=== PATIENT | male | born 1990 | race Native Hawaiian/Other Pacific Islander ===

== ENCOUNTER 2022-11-23 11:38 | Emergency (ER) | payer OTHER ==
[~2022-11-23] VITALS: Ht 172 cm; Wt 61.0 kg
[2022-11-23] MEDS ORDERED: TETANUS,DIPTH,PERTUSS P/F (BOOSTRIX) 0.5 ML VIAL IM ONE (12:00)
--- NOTE | 2022-11-23 12:00 | ED Upper Extremity ---
General Chief Complaint: Upper Extremity Stated Complaint: RT HAND FINGER INJ AT WORK, WC Nursing Triage Note: PT TO RM 3 WITH CC OF CRUSHINJURY TO RT SECOND DIGIT, PT DROPPED HEAVY STEEL ON IT ABOUT 20 MIN WIRE TINNER, NO DRESSING IN, TOURNIQUET IN PLACE ON ARRIVAL TAKEN OFF AT TRIAGE, NO DRESSING. PT STATED BLOOD WAS RUNNING OUIT AND NOT SQUIRTING. PT NEEDS A TETANUS SHOT, DENIES MED HX. DIAGNOSTICS TECH NEEDED, CO WORKER SPEAKS [facility] Source: patient Exam Limitations: no limitations History of Present Illness Date Seen by Provider: Nov 23, 2022 Time Seen by Provider: 11:50 Initial Comments 32-year-old Upper Sorbian-speaking male presents to the ED after work injury. States that a heavy piece of metal fell on his right hand approximately 20 minutes prior to arrival. He is complaining of pain in the hand as well as the index finger. There is a laceration to the distal end of the index finger. Denies any past medical history, denies any past surgeries, does not take any medications. Allergies and Home Medications Allergies Coded Allergies: No Known Drug Allergies (Unverified , 11/23/22) Patient Home Medication List Home Medication List Reviewed: Yes Review of Systems Constitutional: no symptoms reported Musculoskeletal: other (Right hand pain) Skin: other (Laceration to distal end of index finger of right hand.) Past Mfilqje-Jyilvk-Cfzpai Hx Patient Social History Tobacco Use?: No Substance use?: No Alcohol Use?: Yes Alcohol type: Beer Immunizations Up To Date First/Initial COVID19 Vaccinat: NO Past Medical History Surgery/Hospitalization HX: DENIES MED HX Physical Exam Vital Signs Vital Signs - First Documented 11/23/22 11:45 Temp 36.2 Pulse 77 Resp 20 B/P (MAP) 128/113 (118) Pulse Ox 100 O2 Delivery Room Air Capillary Refill : Height, Weight, BMI Height: '" Weight: lbs. oz. kg; 20.00 BMI Method: General Appearance: WD/WN, no apparent distress Neck: supple, normal inspection Cardiovascular: regular rate, rhythm, no edema, no gallop, no JVD, no murmur Respiratory: lungs clear, normal breath sounds, no respiratory distress, no accessory muscle use Wrist: Yes no evidence of injury, Yes normal ROM Hand: Right, abrasions (Posterior aspect of right hand), laceration (Distal end of index finger on right hand), limited ROM (fingers) Neurologic/Psychiatric: alert, normal mood/affect Skin: normal color, warm/dry Procedures/Interventions Wound Location: Upper Extremities Other Wound Location Distal end of second digit Wound's Depth, Shape: irregular Wound Explored: clean Irrigated w/ Saline (ccs): 500 Anesthesia: 1% Lidocaine Volume Anesthetic (ccs): 5 Suture: Ethlion Suture Size: 4-0 Number of Sutures: 16 Progress/Results/Core Measures Results/Orders My Orders Orders - TRINA GARCIA APRN Hand, Right, 3 Views (11/23/22 11:52) Dipht,Pertuss(Acell),Tet Adult (Boostrix (11/23/22 12:00) Hydrocodone/Apap 5/325 Tablet (Lortab 5 (11/23/22 12:15) Lidocaine 1% Inj 20 Ml (Xylocaine 1% Inj (11/23/22 12:15) Lidocaine 1% Inj 10 Ml (Xylocaine 1% Inj (11/23/22 12:15) Medications Given in ED Vital Signs/I&O Blood Pressure Mean: 118 Progress Progress Note #1: Time: 12:00 Progress Note Patient seen and evaluated, resting comfortably, no acute distress. Based on exam and symptoms, concern for fracture of hand or right index finger. X-ray of hand ordered. Progress Note #2: Time: 13:34 Progress Note Laceration repair completed. X-ray negative for fracture. Will discharge with follow-up with wound care due to being unable to completely close laceration. Discharge charge and return precautions provided. Wound care called to speak with his physician after patient left. She states that Dr. Blount will be out of the office next week, so they will be unable to remove the sutures in time for him to be removed. Wound care will call patient back to have him come to the ER to have the sutures removed in 10 days. Discussed still wanting to have him be seen by wound care due to being unable to close the wound. Wound care will try to schedule an appointment for him for when Dr. Blount is back in office. Diagnostic Imaging Diagonstic Imaging: Xray Plain Films/CT/US/NM/MRI: hand Comments [facility], [place] NAME: ANTHONY GATES [facility] REC#: [id number] PT STATUS: DEP ER : 1990 PHYSICIAN: TRINA GARCIA APRN ADMIT DATE: 11/23/22/ER Signed Date of Exam:11/23/22 HAND, RIGHT, 3 VIEWS INDICATION: Right hand pain post crush injury. TECHNIQUE: AP, oblique, and lateral views of the right hand were obtained. FINDINGS: No fracture or acute bony abnormality is seen. There is no radiopaque foreign body. There is soft tissue swelling over the 2nd digit distally with abnormal soft tissue gas in the volar soft tissues. IMPRESSION: No fracture or radiopaque foreign body. Soft tissue gas and soft tissue swelling are noted over the 2nd digit. Dictated by: Dictated on workstation # [id number] Dict: 11/23/22 1241 Trans: 11/23/22 2159 [id number] Interpreted by: ZAINA TOMLINSON MD Electronically signed by: ZAINA TOMLINSON MD 11/23/222158 Departure Impression Primary Impression: Laceration Disposition: 01 HOME, SELF-CARE Condition: Stable Departure-Patient Inst. Decision time for Depature: 13:35 Referrals: JOHANA BLOUNT MD Patient Instructions: Laceration Repair With Stitches (DC) Add. Discharge Instructions: Call wound care today to schedule follow-up. Wear the dressing and splint until you see wound care. They will remove your sutures at some point. Return for increased pain, swelling, redness, abnormal drainage from wound, fever, or any other new, concerning, or worsening symptoms. All discharge instructions reviewed with patient and/or family. Voiced understanding. TRINA GARCIA APRN Nov 23, 2022 12:00
[2022-11-23] MEDS ORDERED: LIDOCAINE 1% INJ 20 ML VIAL INJ ONE (12:15)
[2022-11-23] MEDS ORDERED: HYDROcodone/APAP 5 MG/325 MG (LORTAB) TAB PO ONE (12:15)
[2022-11-23] MEDS ORDERED: LIDOCAINE 1% INJ 10 ML VIAL ONE (12:15)
--- NOTE | 2022-11-23 12:46 | Diagnostic Imaging Report ---
INDICATION: Right hand pain post crush injury. TECHNIQUE: AP, oblique, and lateral views of the right hand were obtained. FINDINGS: No fracture or acute bony abnormality is seen. There is no radiopaque foreign body. There is soft tissue swelling over the 2nd digit distally with abnormal soft tissue gas in the volar soft tissues. IMPRESSION: No fracture or radiopaque foreign body. Soft tissue gas and soft tissue swelling are noted over the 2nd digit. Dictated by: Dictated on workstation # [id number]
[2022-11-23 13:52] VITALS: BP 130/82
== END 2022-11-23 13:52 | disposition home or self-care (01) ==
LOC: ER 11:41
DX: S61.210A Laceration without foreign body of right index finger without damage to nail, initial encounter (principal); Z28.310 Unvaccinated for COVID-19; W20.8XXA Other cause of strike by thrown, projected or falling object, initial encounter; Y92.59 Other trade areas as the place of occurrence of the external cause; Y99.0 Civilian activity done for income or pay
CPT/HCPCS: 12013; 73130; 90715

== ENCOUNTER 2022-11-25 07:39 | Emergency (ER) | payer OTHER ==
[~2022-11-25] VITALS: Ht 172.7 cm; Wt 61.2 kg
[2022-11-25] MEDS ORDERED: CEPH500T PO (08:11)
--- NOTE | 2022-11-25 08:15 | ED Suture Removal/Wound Check ---
Suture/Wound Re-check Suture Removal/Wound Recheck : Progress Here with needing dressing change. Has tube gauze in place. States pain is present a little. He is taking hjxq-ivl-lsumtka ibuprofen. He is not currently on antibiotics. No bleeding through exterior gauze noted. General Appearance: WD/WN, no apparent distress Neuro/Tendon: normal motor functions Skin Exam: normal color, warm/dry Comments Gauze dressing soaked as there was bleeding and lower layers and gauze is adhered. After soaking, I was able to expose wound. He does have swelling but no significant red streaks up the finger. Wound appears to be healing. We did clean wound with sterile saline and then I did apply antibiotic ointment and Xeroform gauze to wound. This was covered with dressing and gauze wrap. Tolerated procedure well with no complications. He will need recheck in 2 days. We will initiate outpatient antibiotics due to severity of wound and limited access to wound care. Physical Exam Vital Signs Vital Signs - First Documented 11/25/22 07:48 Temp 36.0 Pulse 68 B/P (MAP) 128/81 (97) Pulse Ox 98 O2 Delivery Room Air Capillary Refill : General Appearance: WD/WN, no apparent distress Extremities: swelling (Distal right index finger without red streaks or foul- smelling drainage) Skin: other (See above) Departure Impression Primary Impression: Encounter for wound re-check Disposition: 01 HOME, SELF-CARE Condition: Improved Departure-Patient Inst. Referrals: NO,LOCAL PHYSICIAN (PCP/Family) Primary Care Physician Patient Instructions: Wound Care (DC) Add. Discharge Instructions: All discharge instructions reviewed with patient and/or family. Voiced understanding. Return here on Wednesday for wound recheck. You may change dressing if it becomes soiled but otherwise leave it in place until Wednesday morning. Continue to follow-up with wound care. Sutures will come out in 10 days either at wound care or here. Return for red streaks up the hand, foul-smelling drainage, fever, increasing pain or other concerns as needed. You may take Tylenol/acetaminophen 1000 mg every 6 hours as needed for pain. You may take ibuprofen 600 mg every 8 hours as needed for pain. Regrese aqu el viernes por la maana para volver a revisar la herida. Puede cambiar el vendaje si se ensucia, gina de lo contrario djelo en miller lugar hasta el viernes por la maana. Contine con el seguimiento con el cuidado de la herida. Las suturas saldrn en 10 olguin ya sea en el cuidado de la herida o aqu. Regrese por vetas ratliff en la mano, drenaje maloliente, fiebre, aumento del dolor u otras preocupaciones segn sea necesario. Puede rafaela Tylenol/acetaminophen 1000 mg cada 6 horas segn sea necesario para el dolor. Puede rafaela ibuprofeno 600 mg cada 8 horas segn sea necesario para el dolor. Scripts Cephalexin (Cephalexin) 500 Mg Tablet 500 MG PO QID, #20 TAB 0 Refills Prov: MILLY WAGONER MD 11/25/22 MILLY WAGONER MD Nov 25, 2022 08:14
[2022-11-25 09:05] VITALS: BP 119/78
== END 2022-11-25 09:05 | disposition home or self-care (01) ==
LOC: EDUNIT# 07:39 → ER 07:41
DX: Z48.00 Encounter for change or removal of nonsurgical wound dressing (principal); Z28.310 Unvaccinated for COVID-19
CPT/HCPCS: 99281

== ENCOUNTER 2022-11-27 07:02 | Emergency (ER) | payer OTHER ==
[~2022-11-27] VITALS: Ht 172 cm; Wt 61.2 kg
[~2022-11-27 07:02] MED LIST: CEPH500T PO
--- NOTE | 2022-11-27 09:09 | ED Suture Removal/Wound Check ---
Suture/Wound Re-check Suture Removal/Wound Recheck : Progress This 32-year-old gentleman presents for a wound check after sustaining injury to the right index finger 2 days ago and receiving sutures in this emergency room. The wound has remained dressed and splinted since then. He has been taking the prophylactic antibiotics. Pain is fairly well controlled. Dressings were taken down during this encounter. There was some adhesion to the wound. Dressing was soaked with saline and carefully peeled away. A thin layer of antibiotic ointment was applied to help prevent further adhesion. Then Xero form gauze was applied followed by a sterile gauze dressing and the splint. General Appearance: WD/WN, no apparent distress Physical Exam Vital Signs Vital Signs - First Documented 11/27/22 11/27/22 07:24 09:19 Temp 36.7 Pulse 67 Resp 20 B/P (MAP) 134/79 Pulse Ox 99 O2 Delivery Room Air Capillary Refill : Less Than 3 Seconds General Appearance: WD/WN, no apparent distress Extremities: other (Laceration in the right distal index finger is approximated with sutures which are still intact. There is slight oozing of blood and serous fluid. No evidence of infection. There is a portion of the palmar aspect of the wound with dusky skin but there is still some blanching and sensation is intact. Sensation and capillary refill is intact in the distal finger.) Departure Impression Primary Impression: Laceration of finger Qualified Codes: S61.211D - Laceration without foreign body of left index finger without damage to nail, subsequent encounter Additional Impression: Encounter for wound care Disposition: HOME, SELF-CARE Condition: Stable Departure-Patient Inst. Decision time for Depature: 09:08 Referrals: NO,LOCAL PHYSICIAN (PCP/Family) Primary Care Physician Patient Instructions: Laceration Repair With Stitches (DC) Add. Discharge Instructions: Keep the wound clean and dry. Elevate to the level of the heart is much as possible. Return on November 29 for a another wound check and dressing change. Continue taking antibiotics as previously prescribed. Return sooner if the dressing becomes soiled or if you have any other problems or concerns. All discharge instructions reviewed with patient and/or family. Voiced understanding. ALCIDES BURCH MD Nov 27, 2022 09:09
[2022-11-27 09:19] VITALS: BP 134/79
[2022-12-10] MEDS ORDERED: ACHD5005 PO (11:36)
== END 2022-11-27 09:19 | disposition home or self-care (01) ==
LOC: EDUNIT# 07:02 → ER 07:03
DX: Z09 Encounter for follow-up examination after completed treatment for conditions other than malignant neoplasm (principal)

== ENCOUNTER 2022-11-29 08:24 | Emergency (ER) | payer OTHER ==
[~2022-11-29] VITALS: Ht 172 cm; Wt 61.2 kg
[2022-11-29 08:30] VITALS: BP 117/74
--- NOTE | 2022-11-29 08:53 | ED Integumentary General ---
General Stated Complaint: RIGHT FINGER WOUND CHECK Source: patient, diplomatic interpreter/translator Exam Limitations: language barrier History of Present Illness Date Seen by Provider: Nov 29, 2022 Time Seen by Provider: 08:35 Initial Comments 32-year-old male who presents to the emergency room with chief complaint of needing a "wound check". He sustained blunt force injury to the right fingertip of the index finger on . He had multiple sutures placed at that time and has had 2 subsequent visits for wound evaluation. Wound has been dressed with Xeroform gauze and an overlying dry gauze dressing with a metal finger splint. Patient was placed on prophylactic antibiotics and is currently taking them. Complains of a little bit of increased pain last night. Is only taking Tylenol and ibuprofen without much relief. No fevers or chills. No red streaks up the hand or into the forearm. States that the fingertip feels numb however he can feel me touching the tip. Does have limited flexion and extension. Timing/Duration: week Severity: moderate Location: hands (right index finger) Associated Symptoms: other (increased pain) Allergies and Home Medications Allergies Coded Allergies: No Known Drug Allergies (Unverified , 11/23/22) Patient Home Medication List Home Medication List Reviewed: Yes Cephalexin (Cephalexin) 500 Mg Tablet, 500 MG PO QID Prescribed by: MILLY WAGONER on 11/25/22 0811 Review of Systems Review of Systems Constitutional: see HPI Musculoskeletal: joint pain (finger tip right index pain and swelling) Skin: other (laceration/wound) Past Txbuvjh-Agdcha-Rkukva Hx Immunizations Up To Date First/Initial COVID19 Vaccinat: NO Second COVID19 Vaccination Mauri: NO Third COVID19 Vaccination Date: NO Past Medical History Surgery/Hospitalization HX: DENIES MED HX Physical Exam Vital Signs Capillary Refill : General Appearance: WD/WN, no apparent distress Cardiovascular: regular rate, rhythm Respiratory: no respiratory distress, no accessory muscle use Skin: other (skin over the finger tip appears macerated and overly moist. blanched/white, especially the volar aspect,) Procedures/Interventions Suture Size: 4-0 Progress/Results/Core Measures Progress Progress Note : Time: 08:50 Progress Note dressing removed. no overlying cellulitis. no purulent drainage. The finger tip is macerated and whitish. A tiny bit of triple antibiotic ointment was placed along the cuticle area where the wound was unable to be closed and was the most edematous. Sutures are still intact. wound was re-dressed with a dry gauze bandage. no xeroform placed at this visit. extensive counselling on wound care with specific instructions to keep the wound DRY at this point, and a very little bit of triple antibiotic ointment on the exposed subcutaneous tissues. will have him back in 4-5 days for another check. the sutures are not in any position to be removed yet. Departure Impression Primary Impression: Encounter for post-traumatic wound check Disposition: HOME, SELF-CARE Condition: Stable Departure-Patient Inst. Decision time for Depature: 08:54 Referrals: [facility]/ NO,LOCAL PHYSICIAN (PCP) Primary Care Physician Patient Instructions: Wound Care ED Add. Discharge Instructions: remove the dressing tonight and wash very gently with a mild soap and water. Pat dry and allow to remain in open air for about 30 minutes to 1 hour. Then put a little triple antibiotic ointment over the open wound. A very tiny amount and dress the wound again with a DRY dressing. Put the finger splint back on. Do this once a day every day. Come back in 4 or 5 days for another wound evaluation. Come back sooner for increased pain, fever, red streaking up the hand or into the arm. Tramadol, 1 tablet every 6 hours as needed for worse pain,. Continue the Ibuprofen 3 tablets (600mg) every 6 hours WITH FOOD as well for pain. abad blairaje esta noche y lvese muy suavemente con un jabn suave y agua. Seque y deje que permanezca al aire stephy alexa aproximadamente 30 minutos a 1 hora. Luego aplique un poco de pomada antibitica triple sobre la herida abierta. Ghazal cantidad muy pequea y cubra la herida nuevamente con un vendaje SECO. Vuelva a colocar la frula para el dedo. Dariusz esto ghazal vez al da todos los olguin. Vuelva en 4 o 5 olguin para otra evaluacin de la herida. Regrese antes si aumenta el dolor, fiebre, vetas ratliff que suben por la mano o hacia el brazo. Tramadol, 1 comprimido cada 6 horas segn necesidad por empeoramiento del dolor. Contine con Ibuprofeno 3 tabletas (600 mg) cada 6 horas CON COMIDA tambin para el dolor. Scripts Tramadol HCl (Tramadol HCl) 50 Mg Tablet 50 MG PO Q6H PRN for PAIN, #15 TAB 0 Refills Prov: NEFTALI HAMLIN MD 11/29/22 NEFTALI HAMLIN MD Nov 29, 2022 08:53
[2022-11-29] MEDS ORDERED: TRM50T PO (08:59)
== END 2022-11-29 09:07 | disposition home or self-care (01) ==
LOC: EDUNIT# 08:24 → ER 08:27
DX: S69.91XD Unspecified injury of right wrist, hand and finger(s), subsequent encounter (principal); X58.XXXD Exposure to other specified factors, subsequent encounter

== ENCOUNTER 2022-12-03 06:40 | Emergency (ER) | payer OTHER ==
[~2022-12-03] VITALS: Ht 172 cm; Wt 61.0 kg
[~2022-12-03 06:40] MED LIST changes: +TRM50T PO
[2022-12-03 07:05] VITALS: BP 116/77
--- NOTE | 2022-12-03 07:34 | ED Integumentary General ---
General Chief Complaint: Skin/Wound Problems Stated Complaint: WOUND CHECK Nursing Triage Note: ARRIVED VIA AMB WITH FRIEND WHO SPEAKS FOR HIM. PT IS HERE FOR THE 4TH TIME TO HAVE HIS FINGER CHECKED. STATES HE WAS TOLD AT THE LAST VISIT TO COME BACK. PT THINKS THE WOUND IS NOT HEALING LIKE IT SHOULD AND HE IS OUT OF ABX. Source: patient, other (friend) Exam Limitations: language barrier History of Present Illness Date Seen by Provider: Dec 03, 2022 Time Seen by Provider: 07:10 Initial Comments Patient is here for another wound check on traumatic wound to finger. Has been cleaning daily with a tiny bit of yellow drainage. no fever. no increased pain. no swelling to the finger or erythema into the proximal finger. Could not get into wound care due to the physician being out of town. Patient is concerned for infection due to the "yellow" and finishing antibiotics yesterday. Not a diabetic. Timing/Duration: other (10 days) Severity: moderate Location: hands Possible Cause: other (work related crush injury) Associated Symptoms: other ("numb" finger tip) Allergies and Home Medications Allergies Coded Allergies: No Known Drug Allergies (Unverified , 11/29/22) Patient Home Medication List Home Medication List Reviewed: Yes Cephalexin (Cephalexin) 500 Mg Tablet, 500 MG PO QID Prescribed by: NEFTALI HAMLIN on 12/03/22 0828 Discontinued Medications Cephalexin (Cephalexin) 500 Mg Tablet, 500 MG PO QID Discontinued Reason: No Longer Taking Prescribed by: MILLY WAGONER on 11/25/22 0811 Last Action: Discontinued Tramadol HCl (Tramadol HCl) 50 Mg Tablet, 50 MG PO Q6H PRN for PAIN Discontinued Reason: No Longer Taking Prescribed by: NEFTALI HAMLIN on 11/29/22 0900 Last Action: Discontinued Review of Systems Review of Systems Constitutional: see HPI Skin: change in color, other (yellow drainage) Past Ycgsops-Kfasjo-Yytrnq Hx Patient Social History Smoking Status: Never a Smoker Substance use?: No Alcohol Frequency: Couple times a week Immunizations Up To Date First/Initial COVID19 Vaccinat: NO Second COVID19 Vaccination Mauri: NO Third COVID19 Vaccination Date: NO Past Medical History Surgery/Hospitalization HX: DENIES MED HX Physical Exam Vital Signs Vital Signs - First Documented 12/03/22 07:05 Temp 35.7 Pulse 65 Resp 16 B/P (MAP) 116/77 (90) Pulse Ox 100 O2 Delivery Room Air Capillary Refill : Less Than 3 Seconds General Appearance: WD/WN, no apparent distress Cardiovascular: regular rate, rhythm Respiratory: no respiratory distress, no accessory muscle use Extremities: other (index finger right hand - healing wound with sutures in place. the volar tip of the finger is black. supple/soft. no purulence is able to be expressed from the wound. No surrounding cellulitis skin change. no proximal erythema or warmth. Limited ROM at DIP. Nail looks good.) Skin: normal color, warm/dry, other (see extremity exam) Procedures/Interventions Suture Size: 4-0 Progress/Results/Core Measures Results/Orders Vital Signs/I&O 12/03/22 07:05 Temp 35.7 Pulse 65 Resp 16 B/P (MAP) 116/77 (90) Pulse Ox 100 O2 Delivery Room Air Blood Pressure Mean: 90 Progress Progress Note : Time: 08:24 Progress Note Discussed with wound care clinic this morning - he is now scheduled for follow up on Wednesday12/07/22 at 0845. Will add 4 more days of antibiotics. Continue dressing/cleaning as directed at last visit. Departure Impression Primary Impression: Encounter for post-traumatic wound check Disposition: HOME, SELF-CARE Condition: Stable Departure-Patient Inst. Decision time for Depature: 08:25 Referrals: JOHANA MOREJON MD Patient Instructions: Wound Care ED Add. Discharge Instructions: Continue the cleaning and dressing as instructed at the last visit. We will continue 4 more days of antibiotics. YOUR APPOINTMENT AT WOUND CARE IS 12/07/22 AT 0845. PLEASE BE ABOUT 10 MIN EARLY FOR PAPERWORK. Return to the Emergency Department for any new, emergent or concerning symptoms. Scripts Cephalexin (Cephalexin) 500 Mg Tablet 500 MG PO QID for 4 Days, #16 TAB 0 Refills Prov: NEFTALI HAMLIN MD 12/03/22 NEFTALI HAMLIN MD Dec 03, 2022 07:34
[2022-12-03] MEDS ORDERED: CEPH500T PO (08:28)
== END 2022-12-03 08:36 | disposition home or self-care (01) ==
LOC: EDUNIT# 06:40 → ER 06:42
DX: Z48.01 Encounter for change or removal of surgical wound dressing (principal)
CPT/HCPCS: 99282

== ENCOUNTER → 2022-12-07 | Outpatient (CLI) | payer OTHER ==
[~2022-12-07] MED LIST changes: +ACHD5005 PO
== END ==
LOC: WOUNDCARE 08:02
PROVIDERS: ATTEND Family Medicine
DX: S67.190A Crushing injury of right index finger, initial encounter (principal); L98.8 Other specified disorders of the skin and subcutaneous tissue; S61.210A Laceration without foreign body of right index finger without damage to nail, initial encounter; X58.XXXA Exposure to other specified factors, initial encounter
CPT/HCPCS: 87070; 87077; 87205; G0463; 99214

== ENCOUNTER 2022-12-09 05:42 | Outpatient (CLI) | payer OTHER ==
[~2022-12-09] VITALS: Ht 175.3 cm; Wt 61.4 kg
[~2022-12-09 05:42] MED LIST changes: -ACHD5005 PO
[2022-12-10] MEDS ORDERED: ACHD5005 PO (11:36)
== END 2022-12-09 12:23 | disposition home or self-care (01) ==
LOC: PREOP 05:42
PROVIDERS: ATTEND Surgery
DX: Z01.818 Encounter for other preprocedural examination (principal)

== ENCOUNTER 2022-12-10 09:38 | Day surgery (SDC) | payer OTHER ==
[~2022-12-10] VITALS: Ht 175.3 cm; Wt 61.4 kg
[2022-12-10] VITALS (11 sets, daily range): BP systolic 102–126; BP diastolic 49–75
[2022-12-10] MEDS ORDERED: BUPIVACAINE 0.5% 30 ML (SENSORCAINE) VIAL ONE (10:14)
[2022-12-10] MEDS ORDERED: MIDAZOLAM 2 MG/2 ML (VERSED) VIAL IV ONE (10:30)
[2022-12-10] MEDS: LACTATED RINGERS 1,000 ML IV PRN ×2 (10:40→11:52)
--- NOTE | 2022-12-10 10:43 | Progress Note-Pre Operative ---
Pre-Operative Progress Note Date H&P Reviewed: Dec 10, 2022 Time H&P Reviewed: 10:42 History & Physical: H&P Reviewed, Patient Examed, No changes noted Pre-Operative Diagnosis: crush injury right index finger ROBERT GEORGE DO Dec 10, 2022 10:43
[2022-12-10] MEDS ORDERED: LIDOCAINE PF 2% 5 ML (XYLOCAINE) VIAL ONE (10:59)
[2022-12-10] MEDS ORDERED: proPOfol 200 MG/20 ML (DIPRIVAN) VIAL IV ONE (10:59)
[2022-12-10] MEDS ORDERED: ONDANSETRON 4 MG/2 ML (SDV) Z0FRAN ONE (10:59)
[2022-12-10] MEDS ORDERED: fentaNYL INJ 100 MCG/2 ML AMP ONE (11:00)
[2022-12-10] MEDS ORDERED: MIDAZOLAM 2 MG/2 ML (VERSED) VIAL ONE (11:00)
[2022-12-10] MEDS ORDERED: SEVOFLURANE (ULTANE) 15 ML INHAL SOLN ONE (11:31)
[2022-12-10] MEDS ORDERED: ACHD5005 PO (11:36)
--- NOTE | 2022-12-10 11:39 | Discharge Inst-Simple/Standard ---
Discharge Inst-Standard Discharge Medications New, Converted or Re-Newed RX: Transmitted to Pharmacy Patient Instructions/Follow Up Plan of Care/Instructions/FU: Sudheer office tomorrow for dressing change Activity as Tolerated: Yes (keep finger clean and dry.) Discharge Diet: Regular Diet Other Inst to Patient Follow up Appt: Make appointment for tomorrowSudheer Instructions: No lifting greater than 10 pounds. No strenuous activity. May shower in 24 hours, no tub bath or soaking. Use incentive spirometer at home as directed. No Smoking Skin/Wound Care: Irrigate and change dressing daily and as needed. Be seen at Dr. Willard office tomorrow for dressing change. Continue with your wound care appointments as well. Symptoms to Report: Appetite Changes, Extremity Discoloration, Numbness/Tingling, Swelling Increased, Bleeding Excessive, Eyesight Changes, Pain Increased, Urine Color Change, Constipation(Persistent), Fever over 101 degree F, Pain/Pressure in chest, Urinating Difficulty, Cough Up/Vomit Blood, Heart Beat Irreg/Pounding, Pain/Pressure in jaw, Vaginal Bleeding Increase, Cramps in feet or legs, Lightheadedness, Pain/Pressure in shoulder, Diarrhea(Persistent), Memory Changes Suddenly, Questions/Concerns, Weight gain consecutive days, Dizziness/Fainting, Nausea/Vomiting, Shortness of Breath, Weight gain over 2 pounds If questions or concerns contact your physician Or seek help at emergency department. ROBERT WILLARD DO Dec 10, 2022 11:39
[2022-12-10] MEDS ORDERED: BUPIVACAINE 0.5% 30 ML (SENSORCAINE) VIAL INJ ONE (11:40)
--- NOTE | 2022-12-10 11:43 | Progress Note-Post Operative ---
Post-Operative Progess Note Surgeon (s)/Manager Technical Services (s) Surgeon ROBERT GEORGE DO Manager Technical Services: na Pre-Operative Diagnosis crush injury right index finger Post-Operative Diagnosis same Procedure & Operative Findings Date of Procedure 12/10/22 Procedure Performed/Findings Digital block R index finger Sharp and cautery debridement of skin and necrotic subcutaneous tissue 2x1.5cm of R finger and washout Anesthesia Type mac with block Estimated Blood Loss Estimated blood loss (mL): minimal Specimens/Packing Specimens Removed necrotic tissue R index finger ROBERT GEORGE DO Dec 10, 2022 11:43
[2022-12-10] MEDS ORDERED: ONDANSETRON 4 MG/2 ML (SDV) Z0FRAN IVP PRN (11:45)
[2022-12-10] MEDS ORDERED: morphine INJ 10 MG/ML 1ML (SYR OR VIAL) IVP ONE (11:45)
[2022-12-10] MEDS ORDERED: HYDROcodone/APAP 5 MG/325 MG (LORTAB) TAB ONE (13:12)
[2022-12-10] MEDS ORDERED: HYDROcodone/APAP 5 MG/325 MG (LORTAB) TAB PO ONE (13:15)
--- NOTE | 2022-12-10 15:04 | Anesthesia-General Post-Op ---
General Patient Condition Mental Status/LOC: Same as Preop Cardiovascular: Satisfactory Nausea/Vomiting: Absent Respiratory: Satisfactory Pain: Controlled Complications: Absent Post Op Complications Complications None Follow Up Care/Instructions Patient Instructions None needed. Anesthesia/Patient Condition Patient Condition Patient was doing well after the procedure with no complaints, stable vital signs, no apparent adverse anesthesia problems. No complications reported per nursing. ZEYNEP AJCKSON 23, 2023 15:04
--- NOTE | 2022-12-10 22:55 | OPERATIVE REPORT ---
DATE OF SERVICE: 12/10/2022 PREOPERATIVE DIAGNOSIS: Crush injury, right index finger. POSTOPERATIVE DIAGNOSIS: Crush injury, right index finger. PROCEDURE: Digital block, right index finger. Sharp and cautery debridement of skin and necrotic subcutaneous tissue, 2 x 1.5 cm of right finger and washout. ANESTHESIA: MAC with block. SURGEON: Robert Willard DO ESTIMATED BLOOD LOSS: Minimal. COMPLICATIONS: None. SPECIMENS: Necrotic tissue, right index finger. INDICATIONS: The patient is a 32-year-old male who suffered a crush injury to the right index finger. Saw wound care that has felt this is to be necrotic and needing surgical intervention. The patient understands risks and benefits of procedure and wished to proceed. Consent was signed in chart. DESCRIPTION OF PROCEDURE: The patient was taken to the operating suite where he was prepped and draped in sterile fashion. Timeout was performed. Digital block was performed at the base of the right index finger. A 15 blade scalpel was then used to amputate a skin flap that was ischemic/necrotic. The subcutaneous tissues were then sharply debrided as well also using cautery for debridement and to achieve hemostasis. The wound was then irrigated with copious amounts of irrigation. Overall dimension of debridement was 2 x 1.5 cm. The wound was then further irrigated and sterile bandage was applied. The patient tolerated the procedure well without any complications, taken to recovery room in stable condition. The patient will follow up tomorrow for dressing change in the office. Job ID: [id number] DocumentID: [id number] Dictated Date: 12/10/2022 19:05:08 Audio Visual Tech Date: 12/10/2022 22:53:00 Dictated By: ROBERT WILLARD DO [facility]
== END 2022-12-10 13:40 ==
LOC: SDC 09:38
PROVIDERS: ATTEND Surgery
DX: S67.190A Crushing injury of right index finger, initial encounter (principal)
CPT/HCPCS: 87081